=== PATIENT | female | born 1995 | race Two or more races ===

== ENCOUNTER 2020-07-20 21:21 | Emergency (ER) | payer OTHER ==
[~2020-07-20] VITALS: Ht 162.6 cm; Wt 61.2 kg
[2020-07-20] MEDS ORDERED: SKELAXIN800 MG PO (23:28)
[2020-07-20] MEDS ORDERED: INTESTINEX680 M1 PO (23:28)
[2020-07-20] MEDS ORDERED: AMOXICILLIN500 M1 PO (23:28)
[2020-07-20] MEDS ORDERED: PEPCID AC20 MG PO (23:28)
[2020-07-20] MEDS ORDERED: NAPROXEN375 MG PO (23:28)
== END 2020-07-21 00:22 | disposition home or self-care (01) ==
LOC: ER 21:21
DX: H92.02 Otalgia, left ear (principal); M26.69 Other specified disorders of temporomandibular joint; Z03.818 Encounter for observation for suspected exposure to other biological agents ruled out